=== PATIENT | male | born 1980 | race African-American/Black ===

== ENCOUNTER 2019-09-01 13:36 | Emergency (ER) | payer MEDICARE, SELFPAY ==
[2019-09-01 13:56] VITALS: BP 168/100; PULSE 111; RESP 20; TEMP 36.7; O2SAT 100; BMI 22.9
--- NOTE | 2019-09-01 14:03 | PC.NURSE ---
1400: Patient is stating that he has the force. He has the force like in Star Wars and that is how he communicates with the otter forces and the things in space.
[2019-09-01 14:38] LABS: Acetaminophen < 10 ug/mL (10-30); Alanine Aminotransferase 15 IU/L (<50); Albumin Globulin Ratio 1.5 (1.0-2.8); Alkaline Phosphatase 81 U/L (38-126); Aspartate Aminotransferase 26 IU/L (17-59); BUN Creatinine Ratio 11.5 (6-22); Bilirubin Total 0.9 mg/dL (0.2-1.3); Blood Urea Nitrogen 11 mg/dL (9-20); Calcium 9.7 mg/dL (8.4-10.2); Carbon Dioxide 27 mmol/L (22-32); Chloride 104 mmol/L (98-107); Estimated Glomerular Filt Rate > 60.0 mL/min (>60); Ethanol (ETOH) < 10 mg/dL; Globulin 3.4 g/dL (1.7-4.1); Glucose 138 mg/dL (70-100); HEMOLYSIS < 15 (0-50); Potassium 3.9 mmol/L (3.4-5.1); Salicylate < 1.0 mg/dL (<20); Sodium 140 mmol/L (137-145); Total Protein 8.4 g/dL (6.3-8.2)
[2019-09-01 14:41] LABS: Add Manual Diff / Slide Review NO; Basophils Absolute Auto 0 /uL (0-100); Basophils Percent Auto 0.5 % (0-2); Eosinophils Absolute Auto 100 /uL (0-450); Hemoglobin 15.7 g/dL (13.5-17.5); Lymphocytes Absolute Auto 1900 /uL (1100-4500); Lymphocytes Percent Auto 26.2 % (25-40); Mean Corpuscular HGB Conc 34.1 % (30-36); Mean Corpuscular Hemoglobin 31.5 PG (26-34); Mean Corpuscular Volume 92.2 fL (80-100); Monocytes Absolute Auto 500 /uL (0-900); Monocytes Percent Auto 7.4 % (3-14); Neutrophils Absolute Auto 4600 /uL (1500-7000); Neutrophils Percent Auto 64.9 % (50-75); Platelet Count 231 X10^3/uL (150-400); Red Blood Cell Count 4.98 X10^6/uL (4.5-5.9); Red Cell Distribution Width 14.6 % (11.6-14.8); White Blood Cell Count 7.1 X10^3/uL (4.5-11.0)
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
[2019-09-01 15:25] LABS: Thyroid Stimulating Hormone 0.86 uIU/mL (0.47-4.68)
[2019-09-01 17:05] LABS: UR Morphine/Opiate cutoff 300 Negative (Negative); Ur Creatinine Normal (Normal); Ur Specific Gravity Normal (Normal); Urine Amphetamines Negative (Negative); Urine Barbiturates Negative (Negative); Urine Benzodiazepines Negative (Negative); Urine Cocaine Negative (Negative); Urine MDMA Negative (Negative); Urine Methadone Negative (Negative); Urine Methamphetamines Negative (Negative); Urine Oxycodone Negative (Negative); Urine Phencyclidine Negative (Negative); Urine Tetrahydrocannabinol Positive (Negative); Urine Tricyclic Antidepressant Negative (Negative); Urine pH Normal (Normal)
--- NOTE | 2019-09-01 20:00 | PC.NURSE ---
Patient appears to be resting with eyes closed.
--- NOTE | 2019-09-01 20:59 | PC.NURSE ---
Miguel Angel Mcgrath taking over sitter position @21:00
[2019-09-02 00:25] VITALS: BP 127/63; PULSE 58; RESP 14; TEMP 36.8; O2SAT 100
--- NOTE | 2019-09-02 05:52 | PC.NURSE ---
Pt awake at 06:50 to use the bathroom. Seems irritated and swearing at the world as he lays back down. Some mumbling to self otherwise quite.
--- NOTE | 2019-09-02 06:59 | PC.NURSE ---
pt is very talkative at the moment. 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 Generally good mood at the moment.
[2019-09-02] MEDS: ARIPiprazole 10 MG TABLET PO (07:14)
[2019-09-02 07:20] VITALS: BP 119/72; PULSE 71; RESP 16; TEMP 36.6; O2SAT 100
--- NOTE | 2019-09-02 08:09 | PC.NURSE ---
After Patient voided and had a BM, Patient took a shower independently, changed his clothes.
--- NOTE | 2019-09-02 08:30 | PC.NURSE ---
Patient finished breakfast and is lying down quietly.
[2019-09-02 11:57] VITALS: BP 142/83; PULSE 64; RESP 16; TEMP 36.8; O2SAT 100
--- NOTE | 2019-09-02 14:23 | PC.NURSE ---
Patient spent hour plus speaking with Crisis Center Counselor via Zoom Video Conference. Counselor is going to call back after making some calls.
--- NOTE | 2019-09-02 16:31 | PC.NURSE ---
pt is very talkative and seems to be in an optimistic mood about going to a tx facility
--- NOTE | 2019-09-02 18:00 | PC.NURSE ---
Pt currently eating dinner.
[2019-09-02 20:09] VITALS: BP 149/83; PULSE 71; RESP 20; O2SAT 100
--- NOTE | 2019-09-03 05:45 | PC.NURSE ---
Pt. was given a shower at 0530.
[2019-09-03 05:49] VITALS: BP 138/82; PULSE 70; RESP 16; O2SAT 98
--- NOTE | 2019-09-03 05:59 | ED.PSYCH ---
HPI - Psych General Chief Complaint: Psychiatric Symptoms Stated Complaint: Invol Time Seen by Provider: 09/01/19 13:39 Source: patient and police Mode of arrival: Ambulatory Patient History alcohol intake frequency: 0-2 drinks per day Substance Use Type: marijuana Exam Initial Vital Signs Initial Vital Signs: Vital Signs Temperature 98.1 F 09/01/19 13:56 Pulse Rate 111 H 09/01/19 13:56 Respiratory Rate 20 09/01/19 13:56 Blood Pressure 168/100 H 09/01/19 13:56 Pulse Oximetry 100 09/01/19 13:56 Course Orders Ordered: Discontinued Medications Aripiprazole (Abilify) 10 mg PO NOW ONE Stop: 09/02/19 06:51 Last Admin: 09/02/19 07:14 Dose: 10 mg Documented by: ERROL Aripiprazole (Abilify) 10 mg PO NOW ONE Stop: 09/03/19 06:04 Last Admin: 09/03/19 08:52 Dose: 10 mg Documented by: VINEET Vital Signs Vital signs: Vital Signs - 8 hr 09/03/19 12:15 09/03/19 16:35 Temperature 98.2 F Pulse Rate 65 58 L Respiratory Rate 16 14 Blood Pressure [Right Arm] 128/79 151/74 H Pulse Oximetry 100 100 MDM - Psych Lab Data Result diagrams: 09/01/19 14:13 09/01/19 14:13 Labs: Lab Results 09/01/19 09/01/19 09/01/19 Range/Units 14:13 14:13 14:13 WBC 7.1 (4.5-11.0) X10^3/uL RBC 4.98 (4.5-5.9) X10^6/uL Hgb 15.7 (13.5-17.5) g/dL Hct 46.0 (41-53) % MCV 92.2 (80-100) fL MCH 31.5 (26-34) PG MCHC 34.1 (30-36) % RDW 14.6 (11.6-14.8) % Plt Count 231 (150-400) X10^3/uL Neut % (Auto) 64.9 (50-75) % Lymph % (Auto) 26.2 (25-40) % [place] % (Auto) 7.4 (3-14) % Eos % (Auto) 1.0 L (2-4) % Baso % (Auto) 0.5 (0-2) % Neut # (Auto) 4600 (2010-5708) /uL Lymph # (Auto) 1900 (4953-0266) /uL [place] # (Auto) 500 (0-900) /uL Eos # (Auto) 100 (0-450) /uL Baso # (Auto) 0 (0-100) /uL Sodium 140 (137-145) mmol/L Potassium 3.9 (3.4-5.1) mmol/L Chloride 104 (98-107) mmol/L Carbon Dioxide 27 (22-32) mmol/L BUN 11 (9-20) mg/dL Creatinine 0.96 (0.66-1.25) mg/dL Estimated GFR > 60.0 (>60) mL/min BUN/Creatinine Ratio 11.5 (6-22) Glucose 138 H (70-100) mg/dL Calcium 9.7 (8.4-10.2) mg/dL Total Bilirubin 0.9 (0.2-1.3) mg/dL AST 26 (17-59) IU/L ALT 15 (<50) IU/L Alkaline Phosphatase 81 (38-126) U/L Total Protein 8.4 H (6.3-8.2) g/dL Albumin 5.0 (3.5-5.0) g/dL Globulin 3.4 (1.7-4.1) g/dL Albumin/Globulin Ratio 1.5 (1.0-2.8) TSH 0.86 (0.47-4.68) uIU/mL Salicylates < 1.0 (<20) mg/dL U Opiates 300ng/mL cut (Negative) Ur Oxycodone Screen (Negative) Urine Methadone Screen (Negative) Acetaminophen < 10 L (10-30) ug/mL Ur Barbiturates Screen (Negative) U Tricyclic Antidepress (Negative) Ur Phencyclidine Scrn (Negative) Ur Amphetamines Screen (Negative) U Methamphetamines Scrn (Negative) Ur MDMA Scrn (Ecstasy) (Negative) U Benzodiazepines Scrn (Negative) Urine Cocaine Screen (Negative) U Marijuana (THC) Screen (Negative) Ethyl Alcohol < 10 ( - 10) mg/dL 09/01/19 Range/Units 16:30 WBC (4.5-11.0) X10^3/uL RBC (4.5-5.9) X10^6/uL Hgb (13.5-17.5) g/dL Hct (41-53) % MCV (80-100) fL MCH (26-34) PG MCHC (30-36) % RDW (11.6-14.8) % Plt Count (150-400) X10^3/uL Neut % (Auto) (50-75) % Lymph % (Auto) (25-40) % [place] % (Auto) (3-14) % Eos % (Auto) (2-4) % Baso % (Auto) (0-2) % Neut # (Auto) (0311-3091) /uL Lymph # (Auto) (5171-7101) /uL [place] # (Auto) (0-900) /uL Eos # (Auto) (0-450) /uL Baso # (Auto) (0-100) /uL Sodium (137-145) mmol/L Potassium (3.4-5.1) mmol/L Chloride (98-107) mmol/L Carbon Dioxide (22-32) mmol/L BUN (9-20) mg/dL Creatinine (0.66-1.25) mg/dL Estimated GFR (>60) mL/min BUN/Creatinine Ratio (6-22) Glucose (70-100) mg/dL Calcium (8.4-10.2) mg/dL Total Bilirubin (0.2-1.3) mg/dL AST (17-59) IU/L ALT (<50) IU/L Alkaline Phosphatase (38-126) U/L Total Protein (6.3-8.2) g/dL Albumin (3.5-5.0) g/dL Globulin (1.7-4.1) g/dL Albumin/Globulin Ratio (1.0-2.8) TSH (0.47-4.68) uIU/mL Salicylates (<20) mg/dL U Opiates 300ng/mL cut Negative (Negative) Ur Oxycodone Screen Negative (Negative) Urine Methadone Screen Negative (Negative) Acetaminophen (10-30) ug/mL Ur Barbiturates Screen Negative (Negative) U Tricyclic Antidepress Negative (Negative) Ur Phencyclidine Scrn Negative (Negative) Ur Amphetamines Screen Negative (Negative) U Methamphetamines Scrn Negative (Negative) Ur MDMA Scrn (Ecstasy) Negative (Negative) U Benzodiazepines Scrn Negative (Negative) Urine Cocaine Screen Negative (Negative) U Marijuana (THC) Screen Positive H (Negative) Ethyl Alcohol ( - 10) mg/dL Urine Dip Bedside Urine Glucose Negative Bedside Urine Bilirubin - Negative Bedside Urine Ketone - Negative Urine Specific [place] 1.015 Bedside Urine Occult Blood - Negative Bedside Urine pH 7.0 Bedside Urine Protein - Negative Bedside Urine Urobilinogen +/- 1mg Bedside Urine Nitrite - Negative Bedside Urine Leukocytes - Negative Esterase Discharge Plan Departure Patient Disposition: Xfer Psychiatric Hosp Clinical Impression: Acute psychosis, Chronic schizophrenia
--- NOTE | 2019-09-03 07:51 | PC.NURSE ---
Patient is lying prone and is sleeping, patient has visible movements and visible chest rise
--- NOTE | 2019-09-03 08:01 | PC.NURSE ---
Patient's breakfast has arrived, breakfast is on a security tray. patient is still sleeping with visible chest rise, patients breakfast is in fridge for when patient is ready to eat.
[2019-09-03] MEDS: ARIPiprazole 10 MG TABLET PO (08:52)
--- NOTE | 2019-09-03 11:18 | PC.NURSE ---
Patient is resting on bed, door is open to hallway.
[2019-09-03 12:15] VITALS: BP 128/79; PULSE 65; RESP 16; TEMP 36.8; O2SAT 100
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
--- NOTE | 2019-09-03 13:31 | PC.NURSE ---
Patient is lying prone, sleeping with visible chest rise and movement
--- NOTE | 2019-09-03 13:34 | CM.SWNOTE ---
INSTRUMENTATION TECHNOLOGIST Note INSTRUMENTATION TECHNOLOGIST consulted Dr. Brady re: patient and provided Dr. Brady an overview of INSTRUMENTATION TECHNOLOGIST's discussion with DCR. Current plan is to seek involuntary treatment for patient. INSTRUMENTATION TECHNOLOGIST called [facility] to inquire about bed availability. [facility] did not indicate directly if there was a bed available, but asked for INSTRUMENTATION TECHNOLOGIST to fax clinicals. INSTRUMENTATION TECHNOLOGIST faxed clinicals to [facility]. INSTRUMENTATION TECHNOLOGIST will follow up with patient and wait to hear from [facility]. MATY Gomez, [facility]
--- NOTE | 2019-09-03 14:40 | CM.SWNOTE ---
SILK CREPE MACHINE OPERATOR Note SILK CREPE MACHINE OPERATOR called [facility] to follow up with fax. SILK CREPE MACHINE OPERATOR spoke with Elaine, who said that the provider would review his chart and call back with with an approval or denial for a bed within 20 minutes. Elaine asked SILK CREPE MACHINE OPERATOR how patient has been since he has been here. SILK CREPE MACHINE OPERATOR reported that patient has been calm and sleeping during the past few hours. Elaine noted that patient has signficant violent history but said that she noticed that his recent outbursts have not been against people. SILK CREPE MACHINE OPERATOR will wait for return call from [facility]. MATY Gomez
--- NOTE | 2019-09-03 14:45 | PC.NURSE ---
patient is lying on his left side sleeping with visible movements, door to hallway open.
--- NOTE | 2019-09-03 15:20 | CM.SWNOTE ---
CIVIL ENGINEERING TECHNICIAN note CIVIL ENGINEERING TECHNICIAN recieved call from Breezy at [facility] regarding patient. [facility] has accepted patient for placement tonight. Admitting provider is Dr. Ramos. [id number]- [facility] . Check in time 7pm. CIVIL ENGINEERING TECHNICIAN called CHIQUI Purvis to update. Hyun will fax paperwork needed for transport to [facility] and CIVIL ENGINEERING TECHNICIAN will have to serve patient with papers informing patient that he is being placed involuntarily. CIVIL ENGINEERING TECHNICIAN informs Dr. Brady and JHON Ashley of current plan. Miguel Angel Booker MSW
[2019-09-03 16:35] VITALS: BP 151/74; PULSE 58; RESP 14; O2SAT 100
--- NOTE | 2019-09-03 17:46 | CM.SWNOTE ---
SUPERVISOR FURNACE ROOM note SUPERVISOR FURNACE ROOM contacted DCR to review paperwork to serve to patient. DCR faxed over all legal documents and instructed SUPERVISOR FURNACE ROOM to review dates, put in order, and make 3 copies- one copy to fax to [facility], one copy to send down with transport in envelope for [facility], and one to be given to patient. SUPERVISOR FURNACE ROOM set up video call with DCR and entered room to talk to patient. SUPERVISOR FURNACE ROOM gave patient ipad that had the video call, and CHIQUI Purvis explained the paperwork that SUPERVISOR FURNACE ROOM served to patient. SUPERVISOR FURNACE ROOM serves patient paperwork, and patient shows DCR via video that he has received paperwork. SUPERVISOR FURNACE ROOM placed copy of packet with all legal paperwork needed in envelope to be delivered to [facility] upon time of admission. Patient transported to [facility] via EMS. SUPERVISOR FURNACE ROOM called DCR to confirm that everything was complete. DCR confirmed and suggested a follow up call to [facility] to ensure delivery of fax. SUPERVISOR FURNACE ROOM called [facility] and spoke to Maru who confirmed receipt of fax. MATY Gomez
== END 2019-09-03 17:35 ==
PROVIDERS: Nurse Practitioner Family; Emergency Provider Emergency Medicine
DX: F20.9 Schizophrenia, unspecified (principal)
CPT/HCPCS: 36415; 80053; 80305; 80320; 80329; 81003; 84443; 85025; 99284; G0480

== ENCOUNTER 2022-04-04 11:25 | Emergency (ER) | payer MEDICARE, MEDICAID, SELFPAY ==
[2022-04-04 11:36] VITALS: BP 142/70; PULSE 110; RESP 17; TEMP 37.2; O2SAT 99
--- NOTE | 2022-04-04 11:43 | ED.RECABL ---
HPI - Recheck/Abnormal Lab/Rx General Chief Complaint: Recheck/Abnormal Lab/Rx Stated Complaint: mental health medication renewal Time Seen by Provider: 04/04/22 11:41 Source: patient, family and other (DCR) Mode of arrival: Ambulatory History of Present Illness HPI narrative: Patient is a 41-year-old male. History of schizophrenia. Has been on Abilify in the past. Has not taken his medication for many years. He is here in the emergency department family members and also DCR. They are here to get a prescription for the patient's Abilify. He has been having increasing symptoms recently. The plan is to start him back on the Abilify. He will be discharged with family members. They are going to travel to [facility] where the family is located and establish a mental health provider at that location. Related Data Previous Rx's Medication Instructions Recorded aripiprazole 10 mg tablet (Abilify) 10 mg PO BEDTIME #30 tabs 04/04/22 Review of Systems Constitutional Constitutional: Reports system reviewed and no additional complaints, except as documented Cardiovascular Cardiovascular: Reports system reviewed and no additional complaints, except as documented Respiratory Respiratory: Reports system reviewed and no additional complaints, except as documented Gastrointestinal Gastrointestinal: Reports system reviewed and no additional complaints, except as documented Psychiatric Psychiatric: Reports system reviewed and no additional complaints, except as documented Patient History Medical History Schizophrenia alcohol intake frequency: 0-2 drinks per day Substance Use Type: does not use Exam Initial Vital Signs Initial Vital Signs: Vital Signs Temperature 98.9 F 04/04/22 11:36 Pulse Rate 110 H 04/04/22 11:36 Respiratory Rate 17 04/04/22 11:36 Blood Pressure 142/70 H 04/04/22 11:36 Pulse Oximetry 99 04/04/22 11:36 Oxygen Delivery Method 04/04/22 11:36 Resp Effort & Inspection: normal respiratory effort Cardio Rate: regular rate Skin General: no rashes or lesions noted Psych Other: Flat affect but cooperative Course Vital Signs Vital signs: Vital Signs - 8 hr 04/04/22 11:36 Temperature 98.9 F Pulse Rate 110 H Respiratory Rate 17 Blood Pressure 142/70 H Pulse Oximetry 99 Oxygen Delivery Method Room Air MDM - Recheck/Abnormal Lab/Rx MDM Narrative Medical decision making narrative: I will restart the patient on 10 mg of Abilify to be taken on a daily basis at night. This is the dose that he has been on in the past. A prescription was written for him. He will be discharged into the care of family to follow-up with mental health provider. Discharge Plan Departure Patient Disposition: Home Clinical Impression: Encounter for medication refill Instructions: Schizophrenia Activity Restrictions/Additional Instructions: Please start taking the medications as directed. They were sent to the pharmacy located here at the hospital. I do recommend you follow-up with a mental health professional. Return to emergency department for any new symptoms. Prescriptions: New aripiprazole [Abilify] 10 mg tablet 10 mg PO BEDTIME Qty: 30 0RF
== END 2022-04-04 11:59 | disposition home or self-care (01) ==
LOC: ED 11:51
PROVIDERS: Emergency Provider Emergency Medicine
DX: Z76.0 Encounter for issue of repeat prescription (principal)
CPT/HCPCS: 99281